=== PATIENT | female | born 1970 | race Caucasian/White ===

== ENCOUNTER 2017-09-07 13:01 | Emergency (ER) | payer SELFPAY ==
[~2017-09-07] VITALS: Ht 167.6 cm; Wt 79.5 kg
[2017-09-07 13:09] VITALS: BP 157/75; TEMP 99.1
[2017-09-07] MEDS ORDERED: AMBIEN 10MG10 MG PO (13:14)
[2017-09-07] MEDS ORDERED: KLONOPIN 1MG1 MG PO (13:14)
[2017-09-07] MEDS ORDERED: FLEXERIL 1010 MG/TAB PO (13:14)
[2017-09-07] MEDS ORDERED: TOPROL XL100 MG PO (13:14)
[2017-09-07] MEDS ORDERED: PROAIR HFA0.09 MG/AC IH (13:15)
[2017-09-07] MEDS ORDERED: NORCO 325 MG-51 TAB PO (13:15)
[2017-09-07] MEDS ORDERED: NEURONTIN300 MG/CAP PO (13:15)
[2017-09-07 14:35] LABS: INFLUENZA A NEGATIVE; INFLUENZA B NEGATIVE
[2017-09-07] MEDS ORDERED: DOXYCYCLINE 10100 MG PO (14:49)
[2017-09-07] MEDS ORDERED: PREDNISONE20 MG PO (14:49)
[2017-09-07 14:56] VITALS: PULSE 87
== END 2017-09-07 14:57 | disposition home or self-care (01) ==
LOC: COL.ER 13:01
PROVIDERS: Emergency Medicine
DX: J20.9 Acute bronchitis, unspecified (principal); J01.90 Acute sinusitis, unspecified

== ENCOUNTER 2017-10-31 23:17 | Emergency (ER) | payer SELFPAY ==
[~2017-10-31] VITALS: Ht 167.6 cm; Wt 77.3 kg
[~2017-10-31 23:17] MED LIST: AMBIEN 10MG10 MG PO; DOXYCYCLINE 10100 MG PO; FLEXERIL 1010 MG/TAB PO; KLONOPIN 1MG1 MG PO; NEURONTIN300 MG/CAP PO; NORCO 325 MG-51 TAB PO; PREDNISONE20 MG PO; PROAIR HFA0.09 MG/AC IH; TOPROL XL100 MG PO
[2017-10-31 23:23] VITALS: BP 145/77; TEMP 98.2
[2017-10-31 23:57] LABS: COLLECTION METHOD CLEAN CATCH
[2017-11-01 00:55] LABS: PH 6 (5-8); SQUAMOUS EPITHELIAL 0-2 /hpf; URINE APPEARANCE Clear; URINE BILIRUBIN Negative (NEGATIVE); URINE BLOOD 1+ (NEGATIVE); URINE COLOR Straw; URINE GLUCOSE Negative (NEGATIVE); URINE KETONE Negative (NEGATIVE); URINE LEUKOCYTE ESTERASE Negative (NEGATIVE); URINE NITRATE Negative (NEGATIVE); URINE PROTEIN(semi-quant) Negative (NEGATIVE); URINE UROBILINOGEN Negative (NEGATIVE)
[2017-11-01 00:56] LABS: URINE BACTERIA Occasional /hpf
[2017-11-01 02:28] VITALS: PULSE 76
== END 2017-11-01 02:29 | disposition home or self-care (01) ==
LOC: COL.ER 23:17
PROVIDERS: Emergency Medicine
DX: S39.012A Strain of muscle, fascia and tendon of lower back, initial encounter (principal); I10 Essential (primary) hypertension; F41.9 Anxiety disorder, unspecified; F17.210 Nicotine dependence, cigarettes, uncomplicated; Z90.49 Acquired absence of other specified parts of digestive tract; Z90.710 Acquired absence of both cervix and uterus; Y04.0XXA Assault by unarmed brawl or fight, initial encounter
CPT/HCPCS: J1170; J2360